=== PATIENT | male | born 1955 | race Caucasian/White ===

== ENCOUNTER 2025-04-23 22:53 | Emergency (ER) | payer OTHER, MEDICARE, MEDICAID ==
[2025-04-23] MEDS: normal saline 1000ml 1,000 ML IV ONE (23:13)
--- NOTE | 2025-04-23 23:38 | RADIOLOGY REPORT ---
CLINICAL INDICATION: R shoulder pain TECHNIQUE: DI SHOULDER, COMPLETE (MIN 2 VWS) Comparison: DI SHOULDER, COMPLETE (MIN 2 VWS) on DOS: 04/23/25 FINDINGS/IMPRESSION: : There is no evidence of acute fracture or dislocation. The humeral head is high riding and there is [id number] glenohumeral joint space narrowing and marginal osteophytosis. Moderate hypertrophic acromioclavicular arthropathy. The visualized portions of the lung are clear and the ribs are normal in appearance. Soft tissues are unremarkable.
--- NOTE | 2025-04-23 23:38 | RADIOLOGY REPORT ---
CLINICAL INDICATION: L shoulder pain TECHNIQUE: DI SHOULDER, COMPLETE (MIN 2 VWS) Comparison: DI SHOULDER, COMPLETE (MIN 2 VWS) on DOS: 04/23/25 FINDINGS/IMPRESSION: : There is no evidence of acute fracture or dislocation. The humeral head is high riding and there is [id number] glenohumeral joint space narrowing and marginal osteophytosis. Moderate hypertrophic acromioclavicular arthropathy. The visualized portions of the lung are clear and the ribs are normal in appearance. Soft tissues are unremarkable.
--- NOTE | 2025-04-24 01:56 | Physician Documentation ---
History of Present Illness ~ Chief Complaint: ETOH Stated Complaint: SEE CHIEF COMPLAINT Time Seen by MD: 23:00 Mode of Arrival: POV, Dropped Off HPI 70 year old male dropped off by friends for having fallen and intoxicated with alcohol. Patient is antagonistic and difficult to interview. Cannot remember which side of his body he fell on and reports bilateral shoulder pain. Tetanus within 5 years?: No Medication Reconciliation Allergies: Coded Allergies: No Allergy Information Available (Unverified , 04/23/25) Review of Systems All Other Systems at this time: Reviewed and Negative Physical Exam Vital Signs: RN Vital Signs have been reviewed: Yes, Temperature: 98.6, Source: Oral, Heart Rate: 81, Respiratory Rate: 16, BP: 98/64, Pulse Oximetry: 97 Oxygen Flow Rate: 0 Physical Exam Gen: disheveled, intoxicated HEENT: PERRL, moist oral mucosa, EOMI Pulmonary: No respiratory distress MSK: no deformity Skin: w/d/i, no rash Neuro: alert, nonfocal Psych: normal affect Progress Results/Orders Results/Orders Orders - JONNY GARCIA MD Shoulder, Complete (Min 2 Vws) (04/23/25 23:04) Shoulder, Complete (Min 2 Vws) (04/23/25 23:14) Completed Orders - JONNY GARCIA MD Normal Saline 1000ml (0.9% Sodium Chlori (04/23/25 23:00) Shoulder, Complete (Min 2 Vws) (04/23/25 23:04) Shoulder, Complete (Min 2 Vws) (04/23/25 23:14) Ethanol (04/23/25 23:29) Medications Received in ER Medications (Trade) Dose Ordered Sig/Onelia Route PRN Reason Start Time Stop Time Status Last Admin Dose Admin Sodium Chloride 1,000 ml @ 1,000 mls/hr ONCE ONCE IV 04/23/25 23:00 04/23/25 23:59 DC 04/23/25 23:13 1,000 MLS/HR Vital Signs 04/23/25 04/23/25 04/23/25 22:54 23:41 23:42 Temp 98.6 Pulse 119 81 Resp 16 16 16 B/P (MAP) 178/82 98/64 (75) Pulse Ox 97 97 O2 Flow Rate 0 Laboratory Tests Test 9/7/25 23:10 Ethyl Alcohol Level 334 H Medical Decision Making Findings 70 year old male with alcohol intoxication and shoulder pain. Xrays interpreted by me demonstrated no fracture or dislocation. Observed, IVF provided, metabolized, and will discharge after road test. Differential Dx:Considerations: Intoxication - ETOH, Intoxication - other drug, Fracture - other bone, Hematoma, Dehydration, Encephalopathy Departure Disposition: HOME / SELF CARE / HOMELESS Impression: Primary Impression: Alcoholic intoxication Condition: Stable Discharge Instructions: Alcohol Intoxication Referrals: NO PRIMARY CARE PROVIDER (PCP) Education Educated: Patient Educated regarding: diagnosis, treatment, prognosis, need for follow up Signature Scribe Signature: . Attestation: . JONNY GARCIA MD Apr 24, 2025 01:56
[2025-04-24 03:58] VITALS: BP 156/72; PULSE 76; RESP 16; TEMP 98.6; O2SAT 96
== END 2025-04-24 03:59 | disposition home or self-care (01) ==
LOC: ER 22:53
DX: F10.129 Alcohol abuse with intoxication, unspecified (principal); M25.512 Pain in left shoulder; M25.511 Pain in right shoulder; W19.XXXA Unspecified fall, initial encounter; Y93.89 Activity, other specified; Y92.89 Other specified places as the place of occurrence of the external cause; Y99.8 Other external cause status; Y90.9 Presence of alcohol in blood, level not specified
CPT/HCPCS: 36415; 73030; 80320; 96360; 99285; J7030